=== PATIENT | male | born 1955 | race Caucasian/White ===

== ENCOUNTER 2023-03-12 22:23 | Emergency (ER) | payer MEDICARE, BC | END 2023-03-12 23:11 | disposition home or self-care (01) | LOC: ERS 22:23 | DX: T82.898A Other specified complication of vascular prosthetic devices, implants and grafts, initial encounter (principal); I10 Essential (primary) hypertension; Z87.891 Personal history of nicotine dependence | CPT/HCPCS: 99283 ==